=== PATIENT | female | born 1965 | race Caucasian/White ===

== ENCOUNTER → 2019-03-26 | Outpatient (CLI) | payer OTHER ==
[~2019-03-26] MED LIST: ALBIPROI; ALBU90OI INH; AMOX500 PO; AMOX875 PO; ATEN100; ATEN100 PO; ATIVAN; AZIT250 PO; CEPH500 PO; CLAR500 PO; CLIN150 PO; DIOVAN; FURO40 PO; GABA400 PO; GUAPSEER PO; HCTZ; HYDACE10B PO; HYDACE5 PO; HYDGUAL120 PO; IBUP200; IBUP800; IBUP800 PO; LEVO750 PO; LEVSOD125 PO; LEVSOD75 PO; LISI20 PO; LORA1 PO; LORA2 PO; NAPR550 PO; PARO20 PO; PENVK500 PO; PRED20 PO; PROCODE120 PO; PROM25 PO; SUBOXONE 12 MG1 EACH SL
== END | disposition home or self-care (01) ==
LOC: LAB 09:31 → LAB SHORT 09:31
DX: R30.0 Dysuria (principal)
CPT/HCPCS: 87077; 87086; 87186

== ENCOUNTER → 2019-06-10 | Outpatient (CLI) | payer OTHER ==
[2019-06-12 15:09] LABS: HPV 16 Negative (Negative); HPV 18 Negative (Negative); HPV OTHER HR TYPES Negative (Negative)
== END ==
LOC: LAB 14:50 → LAB SHORT 14:50
PROVIDERS: Student in an Organized Health Care Education/Training Program
DX: Z12.4 Encounter for screening for malignant neoplasm of cervix (principal)
CPT/HCPCS: 87624; G0145

== ENCOUNTER → 2020-05-19 | Outpatient (CLI) | payer OTHER | END | disposition home or self-care (01) | LOC: LAB SHORT 18:54 → PLD 18:54 | DX: N30.00 Acute cystitis without hematuria (principal) | CPT/HCPCS: 87077; 87086; 87186 ==

== ENCOUNTER 2021-01-12 06:01 | Emergency (ER) | payer OTHER ==
[~2021-01-12] VITALS: Ht 172.7 cm; Wt 76.7 kg
== END 2021-01-12 07:58 | disposition home or self-care (01) ==
LOC: ER 06:01
DX: S52.611A Displaced fracture of right ulna styloid process, initial encounter for closed fracture (principal); S52.571A Other intraarticular fracture of lower end of right radius, initial encounter for closed fracture; S61.452A Open bite of left hand, initial encounter; S61.451A Open bite of right hand, initial encounter; S51.852A Open bite of left forearm, initial encounter; S51.851A Open bite of right forearm, initial encounter; I10 Essential (primary) hypertension; J45.909 Unspecified asthma, uncomplicated; F17.210 Nicotine dependence, cigarettes, uncomplicated; Z88.5 Allergy status to narcotic agent; Z88.8 Allergy status to other drugs, medicaments and biological substances; Z79.899 Other long term (current) drug therapy; W19.XXXA Unspecified fall, initial encounter; W54.0XXA Bitten by dog, initial encounter
CPT/HCPCS: 73060; 73110; 99284; A9270

== ENCOUNTER 2021-01-15 10:36 | Emergency (ER) | payer OTHER ==
[~2021-01-15] VITALS: Ht 172.7 cm; Wt 76.2 kg
[2021-01-15] MEDS ORDERED: Norco 5-325 Ta1 EACH PO (11:24)
== END 2021-01-15 11:33 | disposition home or self-care (01) ==
LOC: ER 10:36
DX: S52.521D Torus fracture of lower end of right radius, subsequent encounter for fracture with routine healing (principal); S52.611D Displaced fracture of right ulna styloid process, subsequent encounter for closed fracture with routine healing; Z76.0 Encounter for issue of repeat prescription; I10 Essential (primary) hypertension; J45.909 Unspecified asthma, uncomplicated; F17.210 Nicotine dependence, cigarettes, uncomplicated; Z88.5 Allergy status to narcotic agent; Z88.8 Allergy status to other drugs, medicaments and biological substances; Z79.899 Other long term (current) drug therapy
CPT/HCPCS: 99281

== ENCOUNTER → 2021-02-23 | Outpatient (CLI) | payer OTHER ==
[~2021-02-23] MED LIST changes: +Norco 5-325 Ta1 EACH PO
[2021-03-01 14:10] LABS: CHLAMYDIA BY NAA Negative (Negative); GONOCOCCUS BY NAA Negative (Negative); HPV 16 Negative (Negative); HPV 18 Negative (Negative); HPV OTHER HR TYPES Negative (Negative); TRICH VAG BY NAA Negative (Negative)
== END ==
LOC: LAB SHORT 18:14
PROVIDERS: Nurse Practitioner Family
DX: Z01.419 Encounter for gynecological examination (general) (routine) without abnormal findings (principal)
CPT/HCPCS: 87491; 87591; 87624; 87661; G0123

== ENCOUNTER 2021-03-22 08:51 | Emergency (ER) | payer OTHER ==
[~2021-03-22] VITALS: Ht 167.6 cm; Wt 74.4 kg
[2021-03-22 09:52] LABS: Source, Urine Catheter
[2021-03-22 09:56] LABS: Appearance, Urine Hazy (Clear); Bilirubin, Urine Neg (Neg); Blood, Urine 1+ (Neg); Color, Urine Yellow (P-Yellow); Glucose Qualitative, Urine Neg (Neg); Ketones, Urine Neg (Neg); Leukocyte Esterase, Urine 3+ (Neg); Nitrite, Urine Pos (Neg); Protein, Urine Neg (Neg); Urobilinogen, Urine NORM (Normal)
[2021-03-22 10:16] LABS: Bacteria Many /hpf; Squamous Epithelial Cells Many /hpf (Few); Transitional Epithelial Cells Rare /hpf (0-Rare); White Blood Cells, Urine 50-100 /hpf (0-5)
[2021-03-22 10:17] LABS: BASOPHILS ABSOLUTE AUTO 0.03 K/mm3 (0.00-0.23); BASOPHILS PERCENT AUTO 1 % (0-2); EOSINOPHILS ABSOLUTE AUTO 0.19 K/mm3 (0.00-0.68); EOSINOPHILS PERCENT AUTO 3 % (0-6); Hematocrit 39.3 % (33.0-51.0); Hemoglobin 12.3 g/dL (11.5-16.0); IMMATURE GRAN ABSOLUTE AUTO 0.02 K/mm3 (0.00-0.10); IMMATURE GRAN PERCENT AUTO 0 % (0-1); LYMPHOCYTES ABSOLUTE AUTO 1.26 K/mm3 (0.84-5.20); LYMPHOCYTES PERCENT AUTO 22 % (21-46); MONOCYTES ABSOLUTE AUTO 0.48 K/mm3 (0.16-1.47); MONOCYTES PERCENT AUTO 9 % (4-13); Mean Corpuscular HGB 28.6 pg (26.0-34.0); Mean Corpuscular HGB Conc 31.3 g/dL (31.5-36.5); Mean Corpuscular Volume 91 fL (80-100); Mean Platelet Volume 10.6 fL (9.1-12.4); NEUTROPHILS PERCENT AUTO 65 % (41-73); Platelet Count 209 K/mm3 (150-400); RDW Coefficient Variation 13.7 % (11.7-14.2); RDW Standard Deviation 46.5 fL (35.1-46.3); White Blood Cell Count 5.68 K/mm3 (4.00-11.30)
[2021-03-22 10:33] LABS: International Normalized Ratio 0.92; Prothrombin Time Results 9.7 Sec (9.7-11.5)
[2021-03-22 10:50] LABS: Alanine Aminotransfer (ALT/SGP 20 U/L (12-78); Albumin/Globulin Ratio 0.7 (0.8-1.8); Alk Phos 154 U/L (50-136); Anion Gap 6 mmol/L (6-16); Aspartate Aminotrans (AST/SGOT 19 U/L (12-37); Bilirubin, Total 0.4 mg/dL (0.1-1.0); Blood Urea Nitrogen 24 mg/dL (8-24); Bun/Creatinine Ratio 27.2 (12.0-20.0); CO2, Blood 34 mmol/L (21-32); Calcium, Blood 8.2 mg/dL (8.5-10.1); Chloride, Blood 100 mmol/L (98-108); Creatinine, Blood 0.88 mg/dL (0.40-1.00); Globulin, Blood 4.4 g/dL (2.2-4.0); Glomerular Filtration Rate >60 (60-); Glucose, Blood 100 mg/dL (70-99); Potassium, Blood 4.3 mmol/L (3.5-5.5); Sodium, Blood 140 mmol/L (136-145); Total Protein, Blood 7.4 g/dL (6.4-8.2); Troponin I <0.015 ng/mL (0.000-0.040)
[2021-03-22 10:55] LABS: U Amphetamine Screen Not Detected; U Barbituate Screen Not Detected; U Benzodiazapine Screen Not Detected; U Buprenorphine Screen DETECTED; U Cannabinoids Screen Not Detected; U Cocaine Screen Not Detected; U Methadone Screen Not Detected; U Methamphetamine Screen Not Detected; U Opiates Screen Not Detected; U Oxycodone Screen Not Detected; U Phencyclidine Screen Not Detected; U Propoxyphene Screen Not Detected
[2021-03-22] MEDS ORDERED: CEFD300 PO (12:49)
== END 2021-03-22 13:32 | disposition home or self-care (01) ==
LOC: ER 08:51
PROVIDERS: Physician Assistant
DX: S70.01XA Contusion of right hip, initial encounter (principal); N39.0 Urinary tract infection, site not specified; Z88.5 Allergy status to narcotic agent; Z88.8 Allergy status to other drugs, medicaments and biological substances; Z79.899 Other long term (current) drug therapy; I10 Essential (primary) hypertension; J45.909 Unspecified asthma, uncomplicated; F17.210 Nicotine dependence, cigarettes, uncomplicated; W19.XXXA Unspecified fall, initial encounter
CPT/HCPCS: 36415; 70450; 71046; 72125; 73502; 73564; 80053; 81001; 83690; 84484; 85025; 85610; 87077; 87086; 87186; 96365; 99284-25; J0696; J7030

== ENCOUNTER 2022-02-26 17:35 | Inpatient (IN) | payer OTHER ==
[~2022-02-26] VITALS: Ht 172.7 cm; Wt 68.8 kg
[~2022-02-26 17:35] MED LIST changes: +CEFD300 PO; -LISI20 PO; +Prinivil10 MG PO; +Venlafaxine HC150 MG PO
[2022-02-26 18:12] LABS: Hematocrit 43.3 % (33.0-51.0); Hemoglobin 14.4 g/dL (11.5-16.0); Mean Corpuscular HGB 27.9 pg (26.0-34.0); Mean Corpuscular HGB Conc 33.3 g/dL (31.5-36.5); Mean Corpuscular Volume 84 fL (80-100); Mean Platelet Volume 10.5 fL (9.1-12.4); Platelet Count 121 K/mm3 (150-400); RDW Coefficient Variation 13.3 % (11.7-14.2); RDW Standard Deviation 41.3 fL (35.1-46.3); Red Blood Cell Count 5.16 M/mm3 (3.80-5.20); White Blood Cell Count 13.72 K/mm3 (4.00-11.30)
[2022-02-26 18:20] LABS: Source, Urine Clean Catch
[2022-02-26 18:24] LABS: Alanine Aminotransfer (ALT/SGP 45 U/L (12-78); Albumin, Blood 2.5 g/dL (3.4-5.0); Albumin/Globulin Ratio 0.5 (0.8-1.8); Alk Phos 173 U/L (50-136); Anion Gap 6 mmol/L (6-16); Aspartate Aminotrans (AST/SGOT 77 U/L (12-37); Bilirubin, Total 0.7 mg/dL (0.1-1.0); Blood Urea Nitrogen 25 mg/dL (8-24); Bun/Creatinine Ratio 27.9 (12.0-20.0); CO2, Blood 29 mmol/L (21-32); Calcium, Blood 9.7 mg/dL (8.5-10.1); Chloride, Blood 104 mmol/L (98-108); Globulin, Blood 5.3 g/dL (2.2-4.0); Glomerular Filtration Rate 74 (60-); Glucose, Blood 121 mg/dL (70-99); Potassium, Blood 3.1 mmol/L (3.5-5.5); Sodium, Blood 139 mmol/L (136-145); Total Protein, Blood 7.8 g/dL (6.4-8.2)
[2022-02-26 18:30] LABS: Appearance, Urine Hazy (Clear); Bilirubin, Urine Neg (Neg); Blood, Urine 5+ (Neg); Color, Urine Amber (P-Yellow); Glucose Qualitative, Urine Neg (Neg); Ketones, Urine Neg (Neg); Leukocyte Esterase, Urine 2+ (Neg); Nitrite, Urine Pos (Neg); Protein, Urine 3+ (Neg); Urobilinogen, Urine 1+ (Normal)
[2022-02-26 18:30] LABS: Influenza A, PCR NEGATIVE (NEGATIVE); Influenza B, PCR NEGATIVE (NEGATIVE); Resp Syncytial Virus, PCR NEGATIVE (NEGATIVE); SARS-Cov-2 (COVID-19) PCR, MMC NEGATIVE (NEGATIVE)
[2022-02-26 18:43] LABS: U Amphetamine Screen Not Detected; U Barbituate Screen Not Detected; U Benzodiazapine Screen Not Detected; U Buprenorphine Screen DETECTED; U Cannabinoids Screen Not Detected; U Cocaine Screen Not Detected; U Methadone Screen Not Detected; U Methamphetamine Screen Not Detected; U Opiates Screen Not Detected; U Oxycodone Screen Not Detected; U Phencyclidine Screen Not Detected; U Propoxyphene Screen Not Detected
[2022-02-26 18:46] LABS: EOSINOPHILS PERCENT MAN 0 % (0-6); TOTAL CELLS COUNTED 100
[2022-02-26 18:48] LABS: Bacteria Many /hpf; Hyaline Casts 0-2 /lpf (0-2); Mucus Light (0-Heavy); Red Blood Cells, Urine 25-50 /hpf (0-2); Squamous Epithelial Cells Mod /hpf (Few); Transitional Epithelial Cells Rare /hpf (0-Rare); White Blood Cells, Urine TNTC /hpf (0-5)
[2022-02-26 18:51] LABS: BAND PERCENT MAN 16 % (0-8); BASOPHILS PERCENT MAN 0 % (0-2); LYMPHOCYTES ABSOLUTE MAN 0.54 K/mm3 (0.84-5.20); LYMPHOCYTES PERCENT MAN 4 % (21-46); METAMYELOCYTE ABSOLUTE MAN 0.41 K/mm3 (0.00-0.00); METAMYELOCYTE PERCENT MAN 3 % (0-0); MONOCYTES ABSOLUTE MAN 0.27 K/mm3 (0.16-1.47); MONOCYTES PERCENT MAN 2 % (4-13); NEUTROPHILS ABSOLUTE MAN 12.48 K/mm3 (1.96-9.15); SEG NEUTROPHILS PERCENT MAN 75 % (41-73)
--- NOTE | 2022-02-27 04:50 | NUR ---
SUMMARY: PATIENT ADMITTED OVERNIGHT FOR UROSEPSIS. PATIENT VERY LETHERGIC UPON ARRIVAL TO UNIT. PATIENT RESPONDS TO VERBAL STIMULI. SHE ANSWERS TO NAME AND CAN STATE SHE IS AT [facility], DOES NOT RESPOND TO ANY OTHER QUESTIONS. PATIENT HAD A FEVER THROUGHOUT NIGHT, NPO, NOT RESPONSIVE ENOUGH TO TAKE ORAL MEDS SO REQUESTED AND ADMINISTERED RECTAL TYLENOL TWICE. PLACED ICE PACKS ON PATIENT CORE SHE BECAME VERY DIAPHORETIC WHEN FEVERS SPIKED. PATIENT INCONTINENT OF URINE AND NOT ABLE TO AMBULATE OUT OF BED. PLACED PATIENT ON PURE WIC AFTER A FEW EPISODES OF INCONTINENT URINE. PATIENT ON TELE RUNNING TACHY LOW 100S. SCABS AND BRUISES NOTED ALL OVER PATIENT ARMS AND LEGS UPON ARRIVAL. PATIENT RESTED IN BED COMFORTABLY MOST OF NIGHT. BED ALARM ON, CALL LIGHT IN REACH. BREIF CHANGED NEEDED. PATIENT OCCASIONALLY WAKES UP AND ATTEMPTS TO GET OUT OF BED. PATIENT EDUCATED TO CALL BEFORE GETTING UP AND REDIRECTED INTO BED.
[2022-02-27 05:53] LABS: Hematocrit 39.5 % (33.0-51.0); Mean Corpuscular HGB 27.7 pg (26.0-34.0); Mean Corpuscular HGB Conc 32.9 g/dL (31.5-36.5); Mean Corpuscular Volume 84 fL (80-100); Mean Platelet Volume 10.7 fL (9.1-12.4); Platelet Count 99 K/mm3 (150-400); RDW Coefficient Variation 13.4 % (11.7-14.2); RDW Standard Deviation 41.5 fL (35.1-46.3); Red Blood Cell Count 4.69 M/mm3 (3.80-5.20); White Blood Cell Count 13.94 K/mm3 (4.00-11.30)
[2022-02-27 06:15] LABS: Bun/Creatinine Ratio 33.9 (12.0-20.0); Calcium, Blood 9.2 mg/dL (8.5-10.1); Creatinine, Blood 0.86 mg/dL (0.40-1.00); Potassium, Blood 2.6 mmol/L (3.5-5.5)
--- NOTE | 2022-02-27 06:26 | NUR ---
PATIENT HAD POSITIVE BLOOD CULTURES GRAM NEG BACILLI. NOTIFIED MD TYLER. 621.
[2022-02-27 07:11] LABS: BAND PERCENT MAN 7 % (0-8); BASOPHILS PERCENT MAN 0 % (0-2); EOSINOPHILS PERCENT MAN 0 % (0-6); LYMPHOCYTES ABSOLUTE MAN 0.55 K/mm3 (0.84-5.20); LYMPHOCYTES PERCENT MAN 4 % (21-46); MONOCYTES ABSOLUTE MAN 0.55 K/mm3 (0.16-1.47); MONOCYTES PERCENT MAN 4 % (4-13); NEUTROPHILS ABSOLUTE MAN 12.82 K/mm3 (1.96-9.15); SEG NEUTROPHILS PERCENT MAN 85 % (41-73); TOTAL CELLS COUNTED 100
[2022-02-27] MEDS ORDERED: BUPRENORPHINE HC8 MG SL (13:18)
[2022-02-27] MEDS ORDERED: VENLAFAXINE H37.5 M1 PO (13:19)
[2022-02-27] MEDS ORDERED: EUTHYROX25 MC1 PO (13:19)
[2022-02-27] MEDS ORDERED: NEURONTIN300 MG PO (13:22)
[2022-02-27] MEDS ORDERED: TORSE20 PO (13:30)
--- NOTE | 2022-02-27 16:39 | NUR ---
SHIFT SUMMARY; PATIENT VERY SOMNOLENT DURING DAY ONLY WAKING WHEN SPOUSE AND DAUGHTER COME TO ROOM. PATIENT INSISTING ON SUBOXONE PO HOWEVER CANNOT REMAIN AWAKE LONG ENOUGH TO ASSIST IN ANSWERING QUESTIONS FOR AN ASSESSMENT. PATIENT RECEIVED 60MEQ OF KCL IV WITH 25NS CONCURRENT FOR BURNING. SHE TOLERATED WELL. AT THIS TIME SHE IS RECEIVING D5 1/2 NS WITH 40MEQ KCL. AT 75ML/HR X 1 BAG. HER BLOOD PRESSURE IS ELEVATED AT 163 SYSTOLIC. HER TEMP IS 99.0 ORALLY. SHE REMAINS SINUS TACK AT 104 SATS 95% ON ROOM AIR.
[2022-02-27 17:23] LABS: Albumin, Blood 1.9 g/dL (3.4-5.0); Anion Gap 3 mmol/L (6-16); Blood Urea Nitrogen 25 mg/dL (8-24); Bun/Creatinine Ratio 29.9 (12.0-20.0); CO2, Blood 30 mmol/L (21-32); Calcium, Blood 8.9 mg/dL (8.5-10.1); Chloride, Blood 114 mmol/L (98-108); Creatinine, Blood 0.84 mg/dL (0.40-1.00); Glomerular Filtration Rate 81 (60-); Glucose, Blood 124 mg/dL (70-99); Magnesium, Blood 2.8 mg/dL (1.6-2.4); Phosphorus, Blood 2.5 mg/dL (2.5-4.9); Potassium, Blood 3.3 mmol/L (3.5-5.5); Sodium, Blood 147 mmol/L (136-145)
[2022-02-28 05:00] LABS: BASOPHILS ABSOLUTE AUTO 0.04 K/mm3 (0.00-0.23); BASOPHILS PERCENT AUTO 0 % (0-2); EOSINOPHILS ABSOLUTE AUTO 0.04 K/mm3 (0.00-0.68); EOSINOPHILS PERCENT AUTO 0 % (0-6); Hematocrit 38.2 % (33.0-51.0); Hemoglobin 12.7 g/dL (11.5-16.0); IMMATURE GRAN ABSOLUTE AUTO 0.06 K/mm3 (0.00-0.10); IMMATURE GRAN PERCENT AUTO 1 % (0-1); LYMPHOCYTES ABSOLUTE AUTO 0.77 K/mm3 (0.84-5.20); LYMPHOCYTES PERCENT AUTO 8 % (21-46); MONOCYTES ABSOLUTE AUTO 0.94 K/mm3 (0.16-1.47); MONOCYTES PERCENT AUTO 9 % (4-13); Mean Corpuscular HGB 27.5 pg (26.0-34.0); Mean Corpuscular HGB Conc 33.2 g/dL (31.5-36.5); Mean Corpuscular Volume 83 fL (80-100); NEUTROPHILS ABSOLUTE AUTO 8.25 K/mm3 (1.96-9.15); NEUTROPHILS PERCENT AUTO 82 % (41-73); Platelet Count 85 K/mm3 (150-400); RDW Coefficient Variation 13.6 % (11.7-14.2); RDW Standard Deviation 41.2 fL (35.1-46.3); Red Blood Cell Count 4.61 M/mm3 (3.80-5.20)
--- NOTE | 2022-02-28 05:08 | NUR ---
SHIFT SUMMARY - NO ACUTE CHANGES THROUGHOUT THIS SHIFT. PT REPORTS FEELING "MUCH BETTER" THIS AM. PT HAS BEEN SLEEPING THROUGHOUT MOST OF THE NIGHT, BUT AWAKENS EASILY TO VERBAL COMMUNICATION. PT'S HAS BEEN REQUESTING PO FLUIDS THROUGHOUT THE NIGHT, KEEPS REPORTING "SHE IS THIRSTY." SEE I/O'S. ANETAWICK WAS OFF/ON FUNCTIONAL TONIGHT - REPLACED THIS AM. PT HAS BEEN INCONTINENT OF URINE - ATTENDS IN PLACE. IV FLUIDS INFUSED - SL'D. FLUIDS AT BEDSIDE. CALL LIGHT WITHIN REACH. BED IN LOW POSITION. WILL CONTINUE TO MONITOR UNTIL AM SHIFT CHANGE.
[2022-02-28 05:16] LABS: Albumin, Blood 1.7 g/dL (3.4-5.0); Anion Gap 6 mmol/L (6-16); Blood Urea Nitrogen 25 mg/dL (8-24); Bun/Creatinine Ratio 30.7 (12.0-20.0); CO2, Blood 27 mmol/L (21-32); Calcium, Blood 8.7 mg/dL (8.5-10.1); Chloride, Blood 108 mmol/L (98-108); Creatinine, Blood 0.81 mg/dL (0.40-1.00); Glomerular Filtration Rate 84 (60-); Glucose, Blood 127 mg/dL (70-99); Magnesium, Blood 2.4 mg/dL (1.6-2.4); Phosphorus, Blood 2.1 mg/dL (2.5-4.9); Potassium, Blood 3.3 mmol/L (3.5-5.5); Sodium, Blood 141 mmol/L (136-145)
[2022-02-28] MEDS ORDERED: VENL37.5 PO (09:05)
--- NOTE | 2022-02-28 18:19 | NUR ---
SUMMARY- PT A/O X4. STATES SHE FEELS LIKE HER SENSORIUM IS CLEAR NOW. VERBAL AND PLEASANT, AWAKE AND HAPPY. TOLERATING FOOD AND FLUIDS. GOT UP BEFORE LUNCH AND BATHED, TOOK PUREWICK OFF, SKIN INTACT. LUNGS ARE CLEAR. BROUGHT CPAP FROM HOME FOR PT USE. ON CONT PULSE OX SATTING 94-97%. USES OXYGEN WITH IT AT NIGHT. PREFERS TO SIT UP IN CHAIR. OBTAINED A RECLINER SO PT COULD ELEVATE LEGS. LE ARE DARKENED WITH PVD, NO NOTIBLE EDEMA PRESENT ALTHOUGH AT HOME TAKES TORSEMIDE, NOT TAKING HERE IN HOSP. PT HAD BEEN VERY THIRSTY AND URINE HAD BEEN CONCENTRATED, IS NOW MED YELLOW AND LESS CONCEN. WILL REPORT TO IVAN PAZ.
--- NOTE | 2022-03-01 04:40 | NUR ---
SHIFT SUMMARY; NO ACUTE MEDICAL CHANGES OVERNIGHT, THE PT REMAINED ON CONTINOUS BIOX THROUGHOUT THE NIGHT AND MAINTAINED SATS >92%. THE PT REF TO WEAR CPAP STATING THE MACHINE SOUNDS WEIRD NOT LIKE HER HOME MACHINE. PT USED CALL LIGHT APPROPRIATLEY THROUGHOUT THE SHIFT. THE PT WAS MEDICATED WITH TYLENOL LAST NIGHT FOR A BORELINE FEVER OF 100.1 DEGREES WELL A HEADACHE. CURRENTLY THE PT IS RESTING IN BED WITH THE BED IN THE LOWEST POSITION AND THE CALL LIGHT AT BEDSIDE. NO CHANGES IN MENTATION NOTED THROUGHOUT THE NIGHT.
[2022-03-01 09:56] LABS: Albumin, Blood 1.8 g/dL (3.4-5.0); Anion Gap 3 mmol/L (6-16); Blood Urea Nitrogen 28 mg/dL (8-24); Bun/Creatinine Ratio 32.4 (12.0-20.0); CO2, Blood 31 mmol/L (21-32); Calcium, Blood 8.8 mg/dL (8.5-10.1); Chloride, Blood 106 mmol/L (98-108); Creatinine, Blood 0.86 mg/dL (0.40-1.00); Glomerular Filtration Rate 78 (60-); Glucose, Blood 115 mg/dL (70-99); Potassium, Blood 4.2 mmol/L (3.5-5.5); Sodium, Blood 140 mmol/L (136-145)
[2022-03-01] MEDS ORDERED: ACET325 PO (10:13)
[2022-03-01] MEDS ORDERED: VISBIOME 112.51 EACH PO (10:14)
[2022-03-01] MEDS ORDERED: CEFD300 PO (10:14)
[2022-03-01] MEDS ORDERED: ONDA4ODT SL (10:14)
--- NOTE | 2022-03-01 13:46 | NUR ---
PT DISCHARGED 1105 WITH DC INSTRUCTION, PRESENT FOR INSTRUCTION AND ALSO EDUCATION TO PREVENT UTI. WHEELCHAIR OUT TO CAR. BELONGINGS SENT HOME INCLUDING PT'S CPAP
== END 2022-03-01 11:06 | disposition home or self-care (01) | DRG 871 ==
LOC: ER 17:35 → MEDS 17:36
PROVIDERS: Emergency Medicine; Family Medicine; Internal Medicine; Physician Assistant; ADMIT Internal Medicine
DX: A41.51 Sepsis due to Escherichia coli [E. coli] (principal); G92.8 Other toxic encephalopathy; G93.41 Metabolic encephalopathy; F11.20 Opioid dependence, uncomplicated; E87.20 Acidosis, unspecified; N39.0 Urinary tract infection, site not specified; R65.20 Severe sepsis without septic shock; I10 Essential (primary) hypertension; E03.9 Hypothyroidism, unspecified; E87.6 Hypokalemia; Z20.822 Contact with and (suspected) exposure to COVID-19; F41.9 Anxiety disorder, unspecified; J45.909 Unspecified asthma, uncomplicated; N80.9 Endometriosis, unspecified; D69.6 Thrombocytopenia, unspecified; G47.33 Obstructive sleep apnea (adult) (pediatric); G47.9 Sleep disorder, unspecified; L65.9 Nonscarring hair loss, unspecified; F10.11 Alcohol abuse, in remission; F17.210 Nicotine dependence, cigarettes, uncomplicated; Z98.890 Other specified postprocedural states; Z79.899 Other long term (current) drug therapy; Z79.01 Long term (current) use of anticoagulants; Z79.811 Long term (current) use of aromatase inhibitors; Z99.81 Dependence on supplemental oxygen
CPT/HCPCS: 0241U; 36415; 70450; 71045; 73630; 80048; 80053; 80069; 81001; 83605; 83690; 83735; 85025; 87040; 87077; 87086; 87186; 94762; 96365; 99285-25; A9270; J0696; J1650; J3480; J7030; J7050; P9612

== ENCOUNTER → 2022-03-18 | Outpatient (CLI) | payer OTHER ==
[~2022-03-18] MED LIST changes: +ACET325 PO; +BUPRENORPHINE HC8 MG SL; +EUTHYROX25 MC1 PO; +NEURONTIN300 MG PO; +ONDA4ODT SL; +TORSE20 PO; +VENL37.5 PO; +VENLAFAXINE H37.5 M1 PO; +VISBIOME 112.51 EACH PO
== END | disposition home or self-care (01) ==
LOC: LAB 10:04 → LAB SHORT 10:04
DX: R82.90 Unspecified abnormal findings in urine (principal)
CPT/HCPCS: 87086

== ENCOUNTER → 2022-06-06 | Outpatient (CLI) | payer OTHER | END | disposition home or self-care (01) | LOC: LAB 09:00 → LAB SHORT 09:00 | DX: R30.0 Dysuria (principal) | CPT/HCPCS: 87077; 87086; 87186 ==

== ENCOUNTER 2022-06-26 00:55 | Day surgery (SDC) | payer OTHER | END 2022-06-26 22:46 | disposition home or self-care (01) | LOC: WOUND 00:55 | DX: I87.313 Chronic venous hypertension (idiopathic) with ulcer of bilateral lower extremity (principal); L97.822 Non-pressure chronic ulcer of other part of left lower leg with fat layer exposed; L97.812 Non-pressure chronic ulcer of other part of right lower leg with fat layer exposed; I87.2 Venous insufficiency (chronic) (peripheral); I73.9 Peripheral vascular disease, unspecified | CPT/HCPCS: 99406; G0463 ==

== ENCOUNTER 2022-06-28 02:18 | Day surgery (SDC) | payer OTHER | END 2022-06-28 22:43 | disposition home or self-care (01) | LOC: WOUND 02:18 | DX: I87.313 Chronic venous hypertension (idiopathic) with ulcer of bilateral lower extremity (principal); L97.822 Non-pressure chronic ulcer of other part of left lower leg with fat layer exposed; L97.812 Non-pressure chronic ulcer of other part of right lower leg with fat layer exposed; I87.2 Venous insufficiency (chronic) (peripheral); I73.9 Peripheral vascular disease, unspecified; R77.0 Abnormality of albumin ==

== ENCOUNTER 2022-07-03 01:59 | Day surgery (SDC) | payer OTHER | END 2022-07-03 23:00 | disposition home or self-care (01) | LOC: WOUND 01:59 | DX: I87.313 Chronic venous hypertension (idiopathic) with ulcer of bilateral lower extremity (principal); L97.822 Non-pressure chronic ulcer of other part of left lower leg with fat layer exposed; L97.812 Non-pressure chronic ulcer of other part of right lower leg with fat layer exposed; R60.0 Localized edema; I87.2 Venous insufficiency (chronic) (peripheral); I73.9 Peripheral vascular disease, unspecified; R77.0 Abnormality of albumin; Z72.0 Tobacco use | CPT/HCPCS: 99406; A9270 ==

== ENCOUNTER 2022-07-09 00:19 | Day surgery (SDC) | payer OTHER | END 2022-07-09 22:43 | disposition home or self-care (01) | LOC: WOUND 00:19 | DX: I87.313 Chronic venous hypertension (idiopathic) with ulcer of bilateral lower extremity (principal); L97.812 Non-pressure chronic ulcer of other part of right lower leg with fat layer exposed; L97.822 Non-pressure chronic ulcer of other part of left lower leg with fat layer exposed; R60.0 Localized edema; I87.2 Venous insufficiency (chronic) (peripheral); I73.9 Peripheral vascular disease, unspecified; Z72.0 Tobacco use; R77.0 Abnormality of albumin ==

== ENCOUNTER → 2022-07-12 | Outpatient (CLI) | payer OTHER ==
[2022-07-12 16:40] LABS: Source, Urine Clean Catch
[2022-07-12 17:58] LABS: Appearance, Urine Clear (Clear); Bilirubin, Urine Neg (Neg); Blood, Urine Neg (Neg); Color, Urine Yellow (P-Yellow); Glucose Qualitative, Urine Neg (Neg); Ketones, Urine Neg (Neg); Leukocyte Esterase, Urine Neg (Neg); Nitrite, Urine Neg (Neg); Protein, Urine Neg (Neg); Urobilinogen, Urine NORM (Normal)
== END | disposition home or self-care (01) ==
LOC: LAB 12:45 → LAB SHORT 12:45
PROVIDERS: Nurse Practitioner Family
DX: R30.0 Dysuria (principal)
CPT/HCPCS: 81003

== ENCOUNTER 2022-07-24 02:48 | Day surgery (SDC) | payer OTHER | END 2022-07-24 22:59 | disposition home or self-care (01) | LOC: WOUND 02:48 | DX: Z48.00 Encounter for change or removal of nonsurgical wound dressing (principal); Z72.0 Tobacco use ==

== ENCOUNTER → 2022-08-28 | Outpatient (CLI) | payer OTHER ==
[2022-08-28 14:58] LABS: Source, Urine Clean Catch
[2022-08-28 17:35] LABS: Appearance, Urine Clear (Clear); Bilirubin, Urine Neg (Neg); Blood, Urine Neg (Neg); Color, Urine Yellow (P-Yellow); Glucose Qualitative, Urine Neg (Neg); Ketones, Urine Neg (Neg); Leukocyte Esterase, Urine Neg (Neg); Nitrite, Urine Neg (Neg); Protein, Urine Neg (Neg); Urobilinogen, Urine NORM (Normal)
== END | disposition home or self-care (01) ==
LOC: LAB SHORT 14:57 → LAB 14:57
PROVIDERS: Nurse Practitioner Family
DX: N32.89 Other specified disorders of bladder (principal)
CPT/HCPCS: 81003

== ENCOUNTER → 2022-10-30 | Outpatient (CLI) | payer OTHER ==
[~2022-10-30] MED LIST changes: +Percocet 5-3251 EACH PO
[2022-10-30 17:32] LABS: Source, Urine Voided
[2022-10-30 19:18] LABS: Appearance, Urine Clear (Clear); Bilirubin, Urine Neg (Neg); Blood, Urine Neg (Neg); Glucose Qualitative, Urine Neg (Neg); Ketones, Urine Neg (Neg); Leukocyte Esterase, Urine Neg (Neg); Nitrite, Urine Neg (Neg); Protein, Urine Neg (Neg); Urobilinogen, Urine NORM (Normal)
[2022-10-30 19:23] LABS: Color, Urine Pale Yellow (P-Yellow)
== END | disposition home or self-care (01) ==
LOC: LAB SHORT 09:15 → LAB 09:15
PROVIDERS: Nurse Practitioner Family
DX: N39.0 Urinary tract infection, site not specified (principal)
CPT/HCPCS: 81003

== ENCOUNTER → 2023-01-21 | Outpatient (CLI) | payer OTHER | LOC: LAB SHORT 17:36 → LAB 17:36 | DX: R35.0 Frequency of micturition (principal) | CPT/HCPCS: 87086 ==

== ENCOUNTER → 2023-04-29 | Outpatient (CLI) | payer OTHER ==
[2023-04-29 14:37] LABS: Source, Urine Clean Catch
[2023-04-29 18:30] LABS: Appearance, Urine Clear (Clear); Bilirubin, Urine Neg (Neg); Blood, Urine 1+ (Neg); Glucose Qualitative, Urine Neg (Neg); Ketones, Urine Neg (Neg); Leukocyte Esterase, Urine Neg (Neg); Nitrite, Urine Neg (Neg); Protein, Urine Neg (Neg); Urobilinogen, Urine NORM (Normal)
[2023-04-29 18:39] LABS: Color, Urine Pale Yellow (P-Yellow)
[2023-04-29 18:40] LABS: Bacteria Rare /hpf; Red Blood Cells, Urine 0-2 /hpf (0-2); Squamous Epithelial Cells Few /hpf (Few); White Blood Cells, Urine 0-2 /hpf (0-5)
== END ==
LOC: LAB SHORT 14:35 → LAB 14:35
PROVIDERS: Family Medicine
DX: R39.15 Urgency of urination (principal)
CPT/HCPCS: 81001

== ENCOUNTER 2023-05-06 03:34 | Day surgery (SDC) | payer OTHER | END 2023-05-06 22:59 | disposition home or self-care (01) | LOC: WOUND 03:34 | DX: I83.018 Varicose veins of right lower extremity with ulcer other part of lower leg (principal); I83.028 Varicose veins of left lower extremity with ulcer other part of lower leg; E11.622 Type 2 diabetes mellitus with other skin ulcer; L97.813 Non-pressure chronic ulcer of other part of right lower leg with necrosis of muscle; L97.823 Non-pressure chronic ulcer of other part of left lower leg with necrosis of muscle; F11.11 Opioid abuse, in remission; E03.9 Hypothyroidism, unspecified; I10 Essential (primary) hypertension; Z88.5 Allergy status to narcotic agent; Z88.8 Allergy status to other drugs, medicaments and biological substances | CPT/HCPCS: G0463 ==

== ENCOUNTER 2023-05-10 15:34 | Emergency (ER) | payer OTHER ==
[~2023-05-10] VITALS: Ht 170.2 cm; Wt 73.9 kg
[2023-05-10 15:41] VITALS: BP 146/102
[2023-05-10 16:31] LABS: BASOPHILS ABSOLUTE AUTO 0.02 K/mm3 (0.00-0.23); BASOPHILS PERCENT AUTO 0 % (0-2); EOSINOPHILS PERCENT AUTO 0 % (0-6); Hematocrit 44.1 % (33.0-51.0); Hemoglobin 14.1 g/dL (11.5-16.0); IMMATURE GRAN ABSOLUTE AUTO 0.01 K/mm3 (0.00-0.10); IMMATURE GRAN PERCENT AUTO 0 % (0-1); LYMPHOCYTES ABSOLUTE AUTO 1.18 K/mm3 (0.84-5.20); LYMPHOCYTES PERCENT AUTO 18 % (21-46); MONOCYTES ABSOLUTE AUTO 0.47 K/mm3 (0.16-1.47); MONOCYTES PERCENT AUTO 7 % (4-13); Mean Corpuscular HGB 28.1 pg (26.0-34.0); Mean Corpuscular Volume 88 fL (80-100); Mean Platelet Volume 9.4 fL (9.1-12.4); NEUTROPHILS ABSOLUTE AUTO 4.99 K/mm3 (1.96-9.15); NEUTROPHILS PERCENT AUTO 75 % (41-73); Platelet Count 261 K/mm3 (150-400); RDW Coefficient Variation 12.7 % (11.7-14.2); RDW Standard Deviation 41.1 fL (35.1-46.3); Red Blood Cell Count 5.01 M/mm3 (3.80-5.20); White Blood Cell Count 6.67 K/mm3 (4.00-11.30)
[2023-05-10 16:49] LABS: Alanine Aminotransfer (ALT/SGP 17 U/L (12-78); Albumin, Blood 3.2 g/dL (3.4-5.0); Albumin/Globulin Ratio 0.6 (0.8-1.8); Alk Phos 134 U/L (50-136); Anion Gap 4 mmol/L (6-16); Aspartate Aminotrans (AST/SGOT 25 U/L (12-37); Bilirubin, Total 0.5 mg/dL (0.1-1.0); Blood Urea Nitrogen 13 mg/dL (8-24); Bun/Creatinine Ratio 18.3 (12.0-20.0); CO2, Blood 31 mmol/L (21-32); Calcium, Blood 9.5 mg/dL (8.5-10.1); Chloride, Blood 105 mmol/L (98-108); Creatinine, Blood 0.71 mg/dL (0.40-1.00); Ethanol (Alcohol), Blood, Med <3 mg/dL; Globulin, Blood 5.3 g/dL (2.2-4.0); Glomerular Filtration Rate 98 (60-); Glucose, Blood 113 mg/dL (70-99); Sodium, Blood 140 mmol/L (136-145); Total Protein, Blood 8.5 g/dL (6.4-8.2)
[2023-05-10 18:54] LABS: Source, Urine Clean Catch
[2023-05-10 19:00] LABS: Appearance, Urine Clear (Clear); Blood, Urine 2+ (Neg); Color, Urine Amber (P-Yellow); Glucose Qualitative, Urine Neg (Neg); Ketones, Urine 2+ (Neg); Leukocyte Esterase, Urine 1+ (Neg); Nitrite, Urine Neg (Neg); Protein, Urine 2+ (Neg); Specific Gravity, Urine 1.015 (1.003-1.022); Urobilinogen, Urine 2+ (Normal)
[2023-05-10 19:15] LABS: Bilirubin, Urine 1+ (Neg)
[2023-05-10 19:16] LABS: Bacteria Few /hpf; Squamous Epithelial Cells Few /hpf (Few); Transitional Epithelial Cells Rare /hpf (0-Rare)
[2023-05-10] MEDS ORDERED: Bactrim Ds Tab1 EACH PO (19:34)
[2023-05-10] MEDS ORDERED: BUPRENORPHINE HC8 MG SL (19:36)
[2023-05-10] MEDS ORDERED: SOAANZ20 M3 PO (19:36)
[2023-05-10] MEDS ORDERED: Pentoxifylline400 MG PO (19:37)
[2023-05-10] MEDS ORDERED: Effexor Xr150 MG PO (19:37)
[2023-05-10] MEDS ORDERED: EUTHYROX25 MC1 PO (19:37)
[2023-05-10] MEDS ORDERED: FERSU300 PO (19:38)
[2023-05-10] MEDS ORDERED: NEURONTIN300 MG PO (19:38)
== END 2023-05-10 19:44 | disposition home or self-care (01) ==
LOC: ER 15:34
PROVIDERS: Physician Assistant
DX: N39.0 Urinary tract infection, site not specified (principal); E87.6 Hypokalemia; I10 Essential (primary) hypertension; J45.909 Unspecified asthma, uncomplicated; E03.9 Hypothyroidism, unspecified; F17.210 Nicotine dependence, cigarettes, uncomplicated
CPT/HCPCS: 70450; 80053; 81001; 82947; 85025; 87086; 93005; 93010; 99285-25

== ENCOUNTER 2023-05-17 01:24 | Day surgery (SDC) | payer OTHER ==
[~2023-05-17 01:24] MED LIST changes: +Bactrim Ds Tab1 EACH PO; +Effexor Xr150 MG PO; +FERSU300 PO; +Pentoxifylline400 MG PO; +SOAANZ20 M3 PO
== END 2023-05-17 22:59 | disposition home or self-care (01) ==
LOC: WOUND 01:24
DX: E11.622 Type 2 diabetes mellitus with other skin ulcer (principal); L97.812 Non-pressure chronic ulcer of other part of right lower leg with fat layer exposed; L97.822 Non-pressure chronic ulcer of other part of left lower leg with fat layer exposed; I83.019 Varicose veins of right lower extremity with ulcer of unspecified site; I83.029 Varicose veins of left lower extremity with ulcer of unspecified site; I10 Essential (primary) hypertension; E03.9 Hypothyroidism, unspecified; F11.11 Opioid abuse, in remission; I87.2 Venous insufficiency (chronic) (peripheral); E11.51 Type 2 diabetes mellitus with diabetic peripheral angiopathy without gangrene
CPT/HCPCS: G0463

== ENCOUNTER → 2023-06-04 | Outpatient (CLI) | payer OTHER ==
[2023-06-04 13:58] LABS: Source, Urine Clean Catch
[2023-06-04 18:44] LABS: Appearance, Urine Clear (Clear); Bilirubin, Urine Neg (Neg); Blood, Urine 1+ (Neg); Color, Urine Yellow (P-Yellow); Glucose Qualitative, Urine Neg (Neg); Ketones, Urine Neg (Neg); Leukocyte Esterase, Urine Neg (Neg); Nitrite, Urine Neg (Neg); Protein, Urine Neg (Neg); Urobilinogen, Urine NORM (Normal); pH, Urine 6.5 (5.0-8.0)
[2023-06-04 19:11] LABS: Bacteria Few /hpf; Red Blood Cells, Urine 0-2 /hpf (0-2); Squamous Epithelial Cells Few /hpf (Few)
== END | disposition home or self-care (01) ==
LOC: LAB SHORT 13:42 → LAB 13:42
PROVIDERS: Family Medicine
DX: R30.0 Dysuria (principal)
CPT/HCPCS: 81001

== ENCOUNTER 2023-08-03 12:01 | Emergency (ER) | payer OTHER ==
[~2023-08-03] VITALS: Ht 170.2 cm; Wt 57.1 kg
[2023-08-03 12:08] VITALS: BP 149/91
[2023-08-03] MEDS ORDERED: Oxymetazoline 0.05% Nasal Relief Spray 15mL BTL ONE (12:50)
== END 2023-08-03 14:21 | disposition home or self-care (01) ==
LOC: ER 12:01
DX: R04.0 Epistaxis (principal); F41.9 Anxiety disorder, unspecified; I10 Essential (primary) hypertension; J45.909 Unspecified asthma, uncomplicated; E03.9 Hypothyroidism, unspecified; F17.210 Nicotine dependence, cigarettes, uncomplicated; Z79.899 Other long term (current) drug therapy; Z79.890 Hormone replacement therapy; Z91.81 History of falling
CPT/HCPCS: 30901; 99283-25; A9270

== ENCOUNTER 2024-02-04 06:25 | Emergency (ER) | payer OTHER ==
[~2024-02-04] VITALS: Ht 157.5 cm; Wt 54.4 kg
[2024-02-04 08:22] VITALS: BP 149/86
== END 2024-02-04 10:10 | disposition home or self-care (01) ==
LOC: ER 06:25
DX: I83.892 Varicose veins of left lower extremity with other complications (principal); Z79.899 Other long term (current) drug therapy
CPT/HCPCS: 99282

== ENCOUNTER 2024-02-10 16:01 | Observation (INO) | payer OTHER ==
[~2024-02-10] VITALS: Ht 170.2 cm; Wt 57.9 kg
[~2024-02-10 16:01] MED LIST changes: -Effexor Xr150 MG PO
[2024-02-10] MEDS ORDERED: Potassium Chloride 20 MEQ/15 ML UDC PO ONE ×2 (16:25→17:45)
[2024-02-10 16:52] LABS: BASOPHILS ABSOLUTE AUTO 0.03 K/mm3 (0.00-0.23); BASOPHILS PERCENT AUTO 1 % (0-2); EOSINOPHILS ABSOLUTE AUTO 0.12 K/mm3 (0.00-0.68); EOSINOPHILS PERCENT AUTO 2 % (0-6); Hematocrit 21.3 % (33.0-51.0); Hemoglobin 6.7 g/dL (11.5-16.0); IMMATURE GRAN ABSOLUTE AUTO 0.01 K/mm3 (0.00-0.10); IMMATURE GRAN PERCENT AUTO 0 % (0-1); LYMPHOCYTES ABSOLUTE AUTO 1.27 K/mm3 (0.84-5.20); LYMPHOCYTES PERCENT AUTO 25 % (21-46); MONOCYTES ABSOLUTE AUTO 0.63 K/mm3 (0.16-1.47); MONOCYTES PERCENT AUTO 13 % (4-13); Mean Corpuscular HGB 27.5 pg (26.0-34.0); Mean Corpuscular HGB Conc 31.5 g/dL (31.5-36.5); Mean Corpuscular Volume 87 fL (80-100); Mean Platelet Volume 9.3 fL (9.1-12.4); NEUTROPHILS ABSOLUTE AUTO 2.99 K/mm3 (1.96-9.15); NEUTROPHILS PERCENT AUTO 59 % (41-73); Platelet Count 329 K/mm3 (150-400); RDW Coefficient Variation 14.8 % (11.7-14.2); RDW Standard Deviation 47.6 fL (35.1-46.3); Red Blood Cell Count 2.44 M/mm3 (3.80-5.20); White Blood Cell Count 5.05 K/mm3 (4.00-11.30)
[2024-02-10 17:13] LABS: Magnesium, Blood 2.1 mg/dL (1.6-2.4)
[2024-02-10 17:34] LABS: Albumin, Blood 2.9 g/dL (3.4-5.0); Albumin/Globulin Ratio 0.6 (0.8-1.8); Bilirubin, Total 0.3 mg/dL (0.1-1.0); Calcium, Blood 8.3 mg/dL (8.5-10.1); Creatinine, Blood 1.05 mg/dL (0.40-1.00); Globulin, Blood 4.5 g/dL (2.2-4.0); Potassium, Blood 2.3 mmol/L (3.5-5.5); Total Protein, Blood 7.4 g/dL (6.4-8.2)
[2024-02-10] MEDS ORDERED: Potassium Chl 20MEQ/Water100ML 100 ML IV ONE (17:50)
[2024-02-10 17:56] LABS: Free Thyroxine 1.1 ng/dL (0.70-1.60)
[2024-02-10 17:58] LABS: Thyroid Stimulating Hormone 2.94 uIU/mL (0.360-4.800)
[2024-02-10] MEDS ORDERED: FLU VACC TS2024-25(6MOS UP)/PF 45 MCG/0.5 ML SYRINGE IM ONE (18:55)
[2024-02-10] MEDS ORDERED: NS 1,000 ML IV ONE (19:26)
[2024-02-10] MEDS ORDERED: Gabapentin 300 MG Cap PO SCH (21:00)
[2024-02-10] MEDS ORDERED: Pentoxifylline 400 MG TabCR PO SCH (21:00)
[2024-02-10] MEDS ORDERED: buprenorphine HCL 2 MG TAB.SUBL SL SCH (21:00)
[2024-02-10 21:18] VITALS: BP 151/93
[2024-02-10 21:31] VITALS: BP 155/79
[2024-02-10 21:33] LABS: Bun/Creatinine Ratio 19.4 (12.0-20.0); Calcium, Blood 8.3 mg/dL (8.5-10.1); Creatinine, Blood 1.03 mg/dL (0.40-1.00); Potassium, Blood 2.7 mmol/L (3.5-5.5)
[2024-02-10 22:55] VITALS: BP 140/81
[2024-02-10 23:15] VITALS: BP 140/82
[2024-02-11 00:26] VITALS: BP 138/80
[2024-02-11 01:27] VITALS: BP 135/81
[2024-02-11 02:40] VITALS: BP 166/84
[2024-02-11] MEDS ORDERED: DiphenhydrAMINE HCL 25 MG Cap PO PRN (03:45)
[2024-02-11 04:21] LABS: Source, Urine Clean Catch
[2024-02-11 04:41] LABS: Bilirubin, Urine Neg (Neg); Blood, Urine Neg (Neg); Glucose Qualitative, Urine Neg (Neg); Ketones, Urine Neg (Neg); Leukocyte Esterase, Urine Neg (Neg); Nitrite, Urine Neg (Neg); Protein, Urine 1+ (Neg); Urobilinogen, Urine NORM (Normal); pH, Urine 6.5 (5.0-8.0)
[2024-02-11 04:47] LABS: Appearance, Urine Clear (Clear); Color, Urine Yellow (P-Yellow)
[2024-02-11 05:41] LABS: U Amphetamine Screen Not Detected; U Barbituate Screen Not Detected; U Benzodiazapine Screen Not Detected; U Buprenorphine Screen DETECTED; U Cannabinoids Screen Not Detected; U Cocaine Screen Not Detected; U Methadone Screen DETECTED; U Methamphetamine Screen Not Detected; U Opiates Screen Not Detected; U Oxycodone Screen Not Detected; U Phencyclidine Screen Not Detected
[2024-02-11] MEDS ORDERED: Levothyroxine Sodium 0.025 MG Tab PO SCH (06:00)
--- NOTE | 2024-02-11 06:28 | NUR ---
NOC SUMMARY- PT ARRIVED TO ROOM IN NO DISTRESS. PT RECIEVED BOTH UNITS OF ORDERED BLOOD. PT HAS MANY SCATTERED WOUNDS FROM HER SCRATCHING HER SELF. PT STATES SHE SCRATCHES HERSELF IN HER SLEEP. PT BEHAVIOR CHANGED DURING SHIFT. PT BECAME VERY SOMNOLENT AND TEARFUL AT TIMES. PT WOUNDS WERE BANADAGED BUT SHE CONTINUES TEAR THEM OFF. PT PULLED OUT ONE OF HER IV'S. PT REMAINS ON TELE AND NO EVENTS REPORTED. PT IS ON CONTINOUS SPO2 AND HAS BEEN >90%. PT HAS A UNSTEADY GAIT AND REQUIRES FWW W/ GB. PT HAS 2 LARGE BRUISES ON EACH HIP. PT STATES BRUISES IS FROM FREQUENTLY FALLING AT HOME. CALL LIGHT IN REACH AND BED ALARM ON.
[2024-02-11 06:34] LABS: BASOPHILS ABSOLUTE AUTO 0.03 K/mm3 (0.00-0.23); BASOPHILS PERCENT AUTO 0 % (0-2); EOSINOPHILS ABSOLUTE AUTO 0.14 K/mm3 (0.00-0.68); EOSINOPHILS PERCENT AUTO 2 % (0-6); Hemoglobin 8.8 g/dL (11.5-16.0); IMMATURE GRAN ABSOLUTE AUTO 0.03 K/mm3 (0.00-0.10); IMMATURE GRAN PERCENT AUTO 0 % (0-1); LYMPHOCYTES ABSOLUTE AUTO 1.03 K/mm3 (0.84-5.20); LYMPHOCYTES PERCENT AUTO 14 % (21-46); MONOCYTES PERCENT AUTO 10 % (4-13); Mean Corpuscular HGB 28.4 pg (26.0-34.0); Mean Corpuscular HGB Conc 32.6 g/dL (31.5-36.5); Mean Corpuscular Volume 87 fL (80-100); Mean Platelet Volume 9.7 fL (9.1-12.4); NEUTROPHILS ABSOLUTE AUTO 5.37 K/mm3 (1.96-9.15); NEUTROPHILS PERCENT AUTO 74 % (41-73); Platelet Count 312 K/mm3 (150-400); RDW Coefficient Variation 15.1 % (11.7-14.2); RDW Standard Deviation 47.1 fL (35.1-46.3)
[2024-02-11 07:04] VITALS: BP 132/79
[2024-02-11 07:07] LABS: Albumin, Blood 2.8 g/dL (3.4-5.0); Albumin/Globulin Ratio 0.6 (0.8-1.8); Bilirubin, Total 0.6 mg/dL (0.1-1.0); Calcium, Blood 8.7 mg/dL (8.5-10.1); Creatinine, Blood 0.94 mg/dL (0.40-1.00); Globulin, Blood 4.4 g/dL (2.2-4.0); Magnesium, Blood 2.2 mg/dL (1.6-2.4); Percent Saturation 9.7 % (15.0-50.0); Potassium, Blood 3.1 mmol/L (3.5-5.5); Total Protein, Blood 7.2 g/dL (6.4-8.2)
[2024-02-11] MEDS ORDERED: NS 1,000 ML IV SCH ×2 (07:50→08:30)
[2024-02-11] MEDS ORDERED: Potassium Chloride 20 MEQ TabCR PO SCH (08:00)
[2024-02-11] MEDS ORDERED: Venlafaxine HCl 75 MG CapCR PO SCH (09:00)
[2024-02-11] MEDS ORDERED: Furosemide 80 MG Tab PO SCH (09:00)
--- NOTE | 2024-02-11 10:07 | NUR ---
At start of shift patient is awake, able to answer questions. She has uncontrollable muscle twitching and involuntary muscle control of arms and legs. She is impulsive and attempting to get out of bed. pt denies pain, taking medications not prescribed to her. Pt reports she has uncontrolled muscle twitching at home "sometimes". Notified charge authorizer of need for a sitter to keep pt safe from falling out of bed. Notified Dr. Fonseca of concerns of uncontrolled muscle twitching and movement and sitter being requested. Also notified him of methadone found in her system. He ordered NS at 100 mls per hour. Spouse came in this morning. In discussing concerns with him spouse reported his does get uncontrolled muscle movement at times, usually after she has taken 3 gabapentins at bedtime instead of taking throughout the day. Spouse does not take methadone so he does not know how his got methadone in her system. Pt started on the NS. Held lasix as pt reported feeling dehydrated and very thirsty. Due to volume depletion held lasix. Also held gabapentin due to spouse reporting pt getting muscle twitching after taking gabapentin. Gave venlafexine and buperinorphin to prevent withdrawal symptoms.
--- NOTE | 2024-02-11 11:00 | NUR ---
Pt fell asleep, rr are even and unlabored and she easily wakes up. sats drop to 84% while asleep. pt normally wears 2 lpm via CPAP bleed in when asleep at home. pt refused hospital CPAP set up. Requested spouse to bring in home cpap for pt. spouse agreed to bring in. Applied 2 lpm of oxygen via NC to maintain sats above 90% while pt is sleeping. pt sats are 96% at this time.
[2024-02-11 13:58] LABS: Hematocrit 26.1 % (33.0-51.0); Hemoglobin 8.4 g/dL (11.5-16.0)
[2024-02-11 15:13] VITALS: BP 128/75
[2024-02-11] MEDS ORDERED: Ondansetron Odt8 MG SL (15:34)
[2024-02-11] MEDS ORDERED: SULFAMETHOXAZO1 EACH PO (15:38)
--- NOTE | 2024-02-11 17:08 | NUR ---
SHIFT SUMMARY PT A&OX4. PT ADMITTED DUE TO ANEMIA. PT LAST HGB WAS 8.4. PT HAS NOT REPORTED PAIN THROUGH SHIFT. PT HAS A SITTER AT BEDSIDE DUE TO THIS AM PT WAS BEING IMPULSIVE AND HAD INVOLUNTARY MUSCLE MOVEMENTS. PT HAS BEEN SLEEPING THROUGH SHIFT. PT IS AROUSABLE BUT DOES NOT STAY AWAKE. PT HAS CONT. PULSE OX ON, SATS ARE 98%. PT ON 2L O2 VIA N/C. PT ON TELE. PT HAS NORMAL SALINE RUNNING AT 100ML/HR. CALL LIGHT IN REACH.
--- NOTE | 2024-02-11 18:07 | NUR ---
PT WOKE UP WITH VERBAL STIMULI AT THIS TIME. PT IS A/O X 4, SHE IS NOT EXPERIENCING ANY UNCONTROLLED MUSCLE MOVEMENT OR TWITCHING AT THIS TIME. SHE IS EATING DINNER AND ABLE TO FEED HERSELF. HELD LASIX AT THIS TIME. WILL GIVE ORAL POTASSIUM.
[2024-02-11 19:14] VITALS: BP 120/72
[2024-02-11 20:33] LABS: Hematocrit 27.5 % (33.0-51.0); Hemoglobin 8.6 g/dL (11.5-16.0)
[2024-02-12 02:21] LABS: BASOPHILS ABSOLUTE AUTO 0.02 K/mm3 (0.00-0.23); BASOPHILS PERCENT AUTO 0 % (0-2); EOSINOPHILS ABSOLUTE AUTO 0.07 K/mm3 (0.00-0.68); EOSINOPHILS PERCENT AUTO 2 % (0-6); Hematocrit 28.7 % (33.0-51.0); IMMATURE GRAN ABSOLUTE AUTO 0.03 K/mm3 (0.00-0.10); IMMATURE GRAN PERCENT AUTO 1 % (0-1); LYMPHOCYTES ABSOLUTE AUTO 0.77 K/mm3 (0.84-5.20); LYMPHOCYTES PERCENT AUTO 17 % (21-46); MONOCYTES PERCENT AUTO 11 % (4-13); Mean Corpuscular HGB 27.8 pg (26.0-34.0); Mean Corpuscular HGB Conc 31.4 g/dL (31.5-36.5); Mean Corpuscular Volume 89 fL (80-100); Mean Platelet Volume 9.7 fL (9.1-12.4); NEUTROPHILS ABSOLUTE AUTO 3.09 K/mm3 (1.96-9.15); NEUTROPHILS PERCENT AUTO 69 % (41-73); Platelet Count 284 K/mm3 (150-400); RDW Standard Deviation 48.2 fL (35.1-46.3); Red Blood Cell Count 3.24 M/mm3 (3.80-5.20); White Blood Cell Count 4.48 K/mm3 (4.00-11.30)
[2024-02-12 02:37] LABS: Bun/Creatinine Ratio 14.3 (12.0-20.0); Calcium, Blood 8.6 mg/dL (8.5-10.1); Creatinine, Blood 0.84 mg/dL (0.40-1.00); Potassium, Blood 3.6 mmol/L (3.5-5.5)
[2024-02-12 03:26] VITALS: BP 127/73
--- NOTE | 2024-02-12 04:38 | NUR ---
SUMMARY: PT A/OX4 BUT REMAINS VERY DROWSY THIS SHIFT. SHE'S WAKEFUL TO VOICE AND ABLE TO SPECIFY NEEDS BUT FALLS ASLEEP QUICKLY. GABAPENTIN HELD FOR SOMNOLENCE BUT HS BUPRENORPHINE WAS STILL PROVIDED. PT IS FORGETFUL W/SITTER PRESENT FOR FREQ IMPULSIVITY AND FALL RISK. SHE CONT'S TO HAVE OCC.INVOLUNTARY MUSCLE TWITCHING BUT PT REPORTED THIS IS WNL AND SHE'S SEEING A "SPECIALIST FOR IT SOON". SHE HAS SCATTERED SCABS, EXCORIATIONS AND BRUISING T/O BODY D/T URTICARIA AND RECENT FALLS. BENEDRYL PROVIDED PRN AND PT HAS NS INFUSING AT 100 ML/HR, SL'D AFTER THIS BAG. SHE'S NSR AT 70'S-80'S BPM ON TELE. PT TOLERATES 2L O2 VIA NC [place] AND HAS O2 BLEED IN VIA CPAP WHEN SLEEPING. NO ACUTE CHANGES, VSS/AFEBRILE. WCTM AND REPORT TO DAY RN.
[2024-02-12 07:22] VITALS: BP 145/85
[2024-02-12 15:19] VITALS: BP 124/80
[2024-02-12] MEDS ORDERED: POTCHL20ER PO (15:37)
--- NOTE | 2024-02-12 17:10 | NUR ---
DISCHARGE NOTE- PT EDUCATED BY CORTEZ RN AT THE TIME OF DISCHARGE. PT IV AND TELE DC'D AT THAT TIME. PT ESCORTED OUT VIA WC BY THE SUPERVISOR SHRIMP POND, NO S&S OF DISTRESS AT THE TIME OF DISCHARGE. PER DR STONE HOME O2 EVAL NOT NEEDED ORDER CANCELLED
== END 2024-02-12 16:27 | disposition home or self-care (01) ==
LOC: ER 16:01 → MEDS 16:02 → ERHOLD 16:02 → MEDS 21:10
PROVIDERS: Emergency Medicine; Family Medicine; Internal Medicine; ADMIT Student in an Organized Health Care Education/Training Program
DX: D62 Acute posthemorrhagic anemia (principal); E87.6 Hypokalemia; I83.899 Varicose veins of unspecified lower extremity with other complications; I87.2 Venous insufficiency (chronic) (peripheral); I12.9 Hypertensive chronic kidney disease with stage 1 through stage 4 chronic kidney disease, or unspecified chronic kidney disease; N18.2 Chronic kidney disease, stage 2 (mild); G47.33 Obstructive sleep apnea (adult) (pediatric); E03.9 Hypothyroidism, unspecified; F17.210 Nicotine dependence, cigarettes, uncomplicated; Z79.890 Hormone replacement therapy; Z79.899 Other long term (current) drug therapy
CPT/HCPCS: 36415; 36430; 80048; 80053; 82728; 83540; 83550; 83735; 84439; 84443; 85014; 85018; 85025; 86850; 86900; 86901; 86923; 90656; 93005; 93010; 93971; 94762; 96361; 96365; 96366; 99284-25; A9270; G0008; G0378; J3480; J7030; P9016

== ENCOUNTER 2024-03-31 12:37 | Inpatient (IN) | payer OTHER ==
[~2024-03-31] VITALS: Ht 167.6 cm; Wt 55.2 kg
[~2024-03-31 12:37] MED LIST changes: +Ondansetron Odt8 MG SL; +POTCHL20ER PO; +SOAANZ20 M1 PO; -SOAANZ20 M3 PO; +SULFAMETHOXAZO1 EACH PO
[2024-03-31 13:12] LABS: BASOPHILS ABSOLUTE AUTO 0.07 K/mm3 (0.00-0.23); BASOPHILS PERCENT AUTO 1 % (0-2); Hematocrit 35.6 % (33.0-51.0); Hemoglobin 10.7 g/dL (11.5-16.0); LYMPHOCYTES ABSOLUTE AUTO 0.81 K/mm3 (0.84-5.20); LYMPHOCYTES PERCENT AUTO 8 % (21-46); MONOCYTES PERCENT AUTO 14 % (4-13); Mean Corpuscular HGB 23.9 pg (26.0-34.0); Mean Corpuscular HGB Conc 30.1 g/dL (31.5-36.5); Mean Corpuscular Volume 80 fL (80-100); Mean Platelet Volume 9.1 fL (9.1-12.4); NRBC ABSOLUTE 0.08 K/mm3 (0.00-0.02); NRBC Auto 0.8 /100 WBC (0.0-0.2); Platelet Count 452 K/mm3 (150-400); RDW Coefficient Variation 15.1 % (11.7-14.2); RDW Standard Deviation 43.7 fL (35.1-46.3); Red Blood Cell Count 4.47 M/mm3 (3.80-5.20); White Blood Cell Count 9.89 K/mm3 (4.00-11.30)
[2024-03-31 13:13] LABS: EOSINOPHILS ABSOLUTE AUTO 0.03 K/mm3 (0.00-0.68); EOSINOPHILS PERCENT AUTO 0 % (0-6); IMMATURE GRAN PERCENT AUTO 1 % (0-1); NEUTROPHILS ABSOLUTE AUTO 7.48 K/mm3 (1.96-9.15); NEUTROPHILS PERCENT AUTO 76 % (41-73)
[2024-03-31 13:33] LABS: Magnesium, Blood 2.4 mg/dL (1.6-2.4)
[2024-03-31 13:34] LABS: Albumin, Blood 2.3 g/dL (3.4-5.0); Albumin/Globulin Ratio 0.4 (0.8-1.8); Bilirubin, Total 0.5 mg/dL (0.1-1.0); Bun/Creatinine Ratio 29.7 (12.0-20.0); Calcium, Blood 9.9 mg/dL (8.5-10.1); Creatinine, Blood 0.74 mg/dL (0.40-1.00); Globulin, Blood 6.2 g/dL (2.2-4.0); Phosphorus, Blood 2.4 mg/dL (2.5-4.9); Potassium, Blood 2.8 mmol/L (3.5-5.5); Total Protein, Blood 8.5 g/dL (6.4-8.2)
[2024-03-31] MEDS ORDERED: Potassium Chl 20MEQ/Water100ML 100 ML IV SCH (14:10)
[2024-03-31 14:21] LABS: Source, Urine Clean Catch
[2024-03-31 14:24] LABS: Appearance, Urine Clear (Clear); Bilirubin, Urine Neg (Neg); Blood, Urine 2+ (Neg); Color, Urine Yellow (P-Yellow); Glucose Qualitative, Urine Neg (Neg); Ketones, Urine 1+ (Neg); Leukocyte Esterase, Urine Neg (Neg); Nitrite, Urine Neg (Neg); Protein, Urine 3+ (Neg); Urobilinogen, Urine 1+ (Normal)
[2024-03-31 14:33] LABS: Bacteria Few /hpf; Squamous Epithelial Cells Few /hpf (Few); White Blood Cells, Urine 0-2 /hpf (0-5)
[2024-03-31 14:39] LABS: U Amphetamine Screen Not Detected; U Barbituate Screen Not Detected; U Benzodiazapine Screen Not Detected; U Buprenorphine Screen DETECTED; U Cannabinoids Screen Not Detected; U Cocaine Screen Not Detected; U Methadone Screen Not Detected; U Methamphetamine Screen Not Detected; U Opiates Screen Not Detected; U Oxycodone Screen Not Detected; U Phencyclidine Screen Not Detected
[2024-03-31 15:05] LABS: Influenza A, PCR NEGATIVE (NEGATIVE); Influenza B, PCR NEGATIVE (NEGATIVE); Resp Syncytial Virus, PCR NEGATIVE (NEGATIVE); SARS-Cov-2 (COVID-19) PCR, MMC NEGATIVE (NEGATIVE)
[2024-03-31] MEDS ORDERED: CefTRIAXone Sodium 1,000 MG in NS 100 ML IV ONE (15:20)
[2024-03-31] MEDS ORDERED: Doxycycline Hyclate 100 MG in Dextrose 5% 250 ML IV ONE (15:20)
[2024-03-31] MEDS ORDERED: Ondansetron HCl 2 MG / ML 2ML Vial IV PRN (16:05)
[2024-03-31] MEDS ORDERED: Ipratropium/Albuterol SulF 2.5-0.5MG/3 ML Amp INH SCH (16:05)
[2024-03-31] MEDS ORDERED: FLU VACC TS2024-25(6MOS UP)/PF 45 MCG/0.5 ML SYRINGE IM ONE (16:05)
[2024-03-31] MEDS ORDERED: Potassium Phosphate Dibasic 30 MM in NS 500 ML IV SCH (16:30)
[2024-03-31] MEDS ORDERED: NS 1,000 ML IV SCH (16:45)
[2024-03-31] MEDS ORDERED: MethylPREDNISolone Sod Succ 125 MG Vial IV SCH (17:00)
[2024-03-31 17:28] VITALS: BP 177/87
[2024-03-31] MEDS ORDERED: HydrALAZINE HCl 20 MG / ML 1ML Vial IV PRN (17:40)
[2024-03-31] MEDS ORDERED: VENL150ER PO (18:05)
[2024-03-31 18:07] LABS: Base Excess Venous 13.1 mmol/L; Bicarbonate Venous 35.5 mmol/L (24.0-30.0); PCO2 Venous 48.3 mmHg (38-42); pH Blood Venous 7.49 (7.34-7.37)
[2024-03-31] MEDS ORDERED: FentaNYL Citrate 50 MCG/ML 2 ML Injection IV PRN (18:35)
[2024-03-31] MEDS ORDERED: Gabapentin 300 MG Cap PO PRN (18:45)
[2024-03-31] MEDS ORDERED: Buprenorphine HCL/Naloxone HCL 8MG-2MG Tab SL SCH (19:00)
--- NOTE | 2024-03-31 19:37 | NUR ---
ARRIVAL TO PCU 6 / SHIFT SUMMARY PT ARRIVED TO PCU 6 AT APPROXIMATELY 1715. PT SLID OVER FROM [facility] BY 4 CLINICAL STAFF MEMBERS. PT WITH SCABS AND BRUISING SCAATTERED THROUGHOUT, PHOTOS IN CHART, REPORTS PT FALLS AT HOME AND SCRATCHES IN HER SLEEP. PT RESPONDS TO VERBAL STIMULI AND ANSWERS QUESTIONS APPROPRIATELY THOUGH IS VERY DROWSY. PT DOES NOT WANT TO KEEP EYES OPEN DURING CONVERSATION. PASSED BEDSIDE SWALLOW DURING ASSESSMENT BUT NOT STAYING AWAKE LONG ENOUGH TO EAT A MEAL. BP ELEVATED, PHYSICIAN NOTIFIED, ORDERS PLACED. SINUS TACH/AFLUTTER 100'S, WHEN PT DRINKS WATER, HR DROPS TO 70'S THEN RETURNS TO LOW 100'S; PHYSICIAN NOTIFIED, EKG DONE. AT BEDSIDE ASSISTING WITH Hx AND MED REC. UNABLE TO COMPLETE MED REC D/T PT AND NOT REMEMBERING ALL MEDICATIONS. TO BRING IN PILL BOTTLES IN MORNING. NOTIFIED PHYSICIAN OF PTs PAIN AND REPORTED HOME REGIMEN FOR PAIN, ORDERS PLACED. NO OTHER EVENTS, REPORT GIVEN TO ONCOMING RN.
[2024-03-31 20:03] VITALS: BP 171/78
[2024-03-31] MEDS ORDERED: Doxycycline Hyclate 100 MG TAB PO SCH (21:00)
[2024-03-31] MEDS ORDERED: buprenorphine HCL 2 MG TAB.SUBL SL SCH (21:00)
[2024-03-31] MEDS ORDERED: Lactobacil 2-S.Thermo-Bifido 1 1 Cap PO SCH (21:00)
[2024-03-31 22:00] VITALS: BP 170/86
[2024-03-31] MEDS ORDERED: Metoprolol Tartrate 1 MG/ML 5 ML VIAL IV PRN (22:09)
[2024-03-31 22:34] VITALS: BP 157/80
[2024-04-01] VITALS (8 sets, daily range): BP systolic 132–163; BP diastolic 70–87
--- NOTE | 2024-04-01 | NUR ---
PT REMAINS A&OX4. PT WAS HYPERTENSIVE AT START OF SHIFT WITH SBP ABOVE 170s. PREVIOUS RN HAD GIVEN PRN HYDRALAZINE HR BEFORE SHIFT CHANGE. THIS NURSE NOTIFIED DR. WEBER OF MINIMAL IMPROVEMENT. METOPROLOL ORDERS PLACED HOWEVER THIS NURSE DID NOT ADMINISTER DUE TO BP STABALIZING. CURRENTLY PTS BP READS 140s SBP. PT HAS BEEN TITRATED DOWN TO 5L NC AT THIS TIME BY THIS NURSE FOR SATS >92%. FLUIDS CURRENTLY RUNNING. PT ABLE TO SWALLOW PILLS WHOLE WITH NO ISSUE. PT NOTES SHE HAS SCIATICA PAIN, PRN GABAPENTIN GIVEN WITH GOOD RELIEF. PT RESTING COMFORTABLY AT THIS TIME WITH FAMILY AT BEDSIDE. NO FURTHER QUESTIONS OR CONCERNS AT THIS TIME. PLAN OF CARE ONGOING.
[2024-04-01 05:42] LABS: Bun/Creatinine Ratio 30.9 (12.0-20.0); Calcium, Blood 9.4 mg/dL (8.5-10.1); Creatinine, Blood 0.65 mg/dL (0.40-1.00); Potassium, Blood 3.3 mmol/L (3.5-5.5)
--- NOTE | 2024-04-01 05:50 | NUR ---
SHIFT SUMMARY PT MORE ALERT THIS AM. VSS ON 1L NC >95%. AFEBRILE THROUGHOUT NIGHT. PT REMAINS ST 90s-100s ON TELE. PT C/O SCIATIC PAIN, PRN FENTANYL GIVEN WITH GOOD RELIEF. PTS CHIANG PATENT AND DRAINING APPROPRIATELY. NO FURTHER QUESTIONS OR CONCERNS AT THIS TIME. PLAN OF CARE ONGOING.
[2024-04-01] MEDS ORDERED: Pantoprazole Sodium 20 MG Tab PO SCH (06:00)
[2024-04-01] MEDS ORDERED: Levothyroxine Sodium 0.025 MG Tab PO SCH (06:00)
[2024-04-01] MEDS ORDERED: Potassium Chloride 20 MEQ TabCR PO ONE (08:05)
[2024-04-01] MEDS ORDERED: Losartan Potassium 25 MG Tab PO SCH (09:00)
[2024-04-01] MEDS ORDERED: Ferrous Sulfate 325 MG Tab PO SCH (09:00)
[2024-04-01] MEDS ORDERED: PredniSONE 20 MG Tab PO SCH (09:00)
[2024-04-01] MEDS ORDERED: Enoxaparin 40 MG/0.4 ML SYR SC SCH (09:00)
[2024-04-01] MEDS ORDERED: Venlafaxine HCl 75 MG CapCR PO SCH ×2 (09:00)
[2024-04-01] MEDS ORDERED: Venlafaxine HCl 25 MG Tab PO SCH (09:00)
[2024-04-01] MEDS ORDERED: NS 250 ML IV PRN (10:30)
--- NOTE | 2024-04-01 12:56 | NUR ---
RN NOTE MS RESTREPO IS ALERT, ORIENTATED X4, APPROPRIATE CONVERSATION. SHE HAS MULTIPLE DRY SCABS ON HER ARMS AND LEGS AND BEHIND HER NECK WHICH SHE SAID IS NORMAL FOR HER D/T SCRATCHING HERSELF. UP WITH PHYSICAL THERAPIST WITH GAIT BELT, WALKER AND 1 ASSIST. NOTED R LEANING WHEN STANDING WHICH PT SAID IS D/T SCIATICA/BASELINE. SHE DOES C/O RIGHT HAND LIMITATION IN DEXTERITY, DIFFICULTY HOLDING A CUP. SHE DENIES ANY PAIN TO THE RIGHT HAND. IVF STOPPED THIS AM PER V.O FROM DR TYLER. CHIANG REMOVED AT ~10AM, SHE HAS NOT VOIDED YET. PT CHANGED TO MEDICAL STATUS. REPORT CALLED TO JENNIFER NURSE ON MEDICAL FLOOR AND PT WILL TRANSFER ONCE THE ROOM IS READY TO 364. FAMILY AT BEDSIDE.
--- NOTE | 2024-04-01 13:28 | NUR ---
RN NOTE PT LEFT PCU VIA WHEELCHAIR WITH HER TO ROOM 364
[2024-04-01] MEDS ORDERED: CefTRIAXone Sodium 1,000 MG in NS 100 ML IV SCH (16:00)
--- NOTE | 2024-04-01 19:10 | NUR ---
PT CAME TO THE UNIT [facility] 1500. PTS STATUS HAS NOT CHANGED SINCE TRANSFER. PT IS A&OX4, VSS AND ON 2LNC. PT AMBULATES WITH 1A/GB/W. PT AND LOVED ONES HAVE NO QUESTIONS OR COCNERNS SINCE TRANSFER.
--- NOTE | 2024-04-02 04:19 | NUR ---
SHIFT SUMMARY; PATIENT BREATHING MUCH EASIER TONIGHT. MEDICATED AT HS WITH NEUROTIN. 1 OF HER 3 SL REMOVED FOR PATIENT COMFORT. TELE SR-ST 99
[2024-04-02 04:32] VITALS: BP 125/70
[2024-04-02 05:18] LABS: Bun/Creatinine Ratio 37.1 (12.0-20.0); Calcium, Blood 9.6 mg/dL (8.5-10.1); Creatinine, Blood 1.05 mg/dL (0.40-1.00); Potassium, Blood 3.4 mmol/L (3.5-5.5)
[2024-04-02 07:18] VITALS: BP 139/67
[2024-04-02] MEDS ORDERED: Potassium Chloride 20 MEQ TabCR PO ONE (07:50)
[2024-04-02] MEDS ORDERED: IPRAT-ALBUT 0.5-3 ML INH (12:07)
[2024-04-02] MEDS ORDERED: VENL150ER PO (12:08)
[2024-04-02] MEDS ORDERED: VISBIOME 112.51 EACH PO (12:09)
[2024-04-02] MEDS ORDERED: Prednisone20 MG PO (12:09)
[2024-04-02] MEDS ORDERED: ALBU90OI INH (12:10)
[2024-04-02] MEDS ORDERED: AMOCLA875 PO (12:11)
[2024-04-02] MEDS ORDERED: DOXY100 PO (12:12)
[2024-04-02] MEDS ORDERED: FLUTICASONE-SA1 EAC1 INH (12:13)
[2024-04-02] MEDS ORDERED: POTCHL20ER PO (12:15)
--- NOTE | 2024-04-02 14:43 | NUR ---
shift summary PT A&OX4 AND ANSWERS QUESTIONS APPROPRIATELY. VSS, COMPLAINS OF PAIN WITH INHALATION, NO CARDIAC SYMPTOMS NOTED, EDUCATED PT ON SYMPTOMS RELATED TO PNEUMONIA. NO ACUTE EVENTS AT THIS TIME. PT TO BE DISCHARGED HOME. ALL BELONGINGS W/ PT. PT D/TERRY HOME VIA W/C AROUND 1320. CALL RECEIVED FROM [facility], VERIFIED W/ DR TYLER TORSEMIDE AND POTASSIUM MEDICATION REGIMENS. PERIPHERAL IV REMOVED, PT DISCHARGED HOME WITH NO ACUTE EVENTS
== END 2024-04-02 13:25 | disposition home health service (06) | DRG 871 ==
LOC: ER 12:37 → ICUE 12:38 → PCU 16:00 → MEDS 04-01 13:29
PROVIDERS: Emergency Medicine; Physician Assistant; ADMIT Internal Medicine
DX: A41.9 Sepsis, unspecified organism (principal); G92.8 Other toxic encephalopathy; J18.9 Pneumonia, unspecified organism; J96.01 Acute respiratory failure with hypoxia; J96.02 Acute respiratory failure with hypercapnia; J44.0 Chronic obstructive pulmonary disease with (acute) lower respiratory infection; R64 Cachexia; Z68.1 Body mass index [BMI] 19.9 or less, adult; I50.32 Chronic diastolic (congestive) heart failure; I13.0 Hypertensive heart and chronic kidney disease with heart failure and stage 1 through stage 4 chronic kidney disease, or unspecified chronic kidney disease; Z28.21 Immunization not carried out because of patient refusal; R65.20 Severe sepsis without septic shock; F41.9 Anxiety disorder, unspecified; E03.9 Hypothyroidism, unspecified; G47.33 Obstructive sleep apnea (adult) (pediatric); N18.2 Chronic kidney disease, stage 2 (mild); E87.6 Hypokalemia; E83.39 Other disorders of phosphorus metabolism; F17.210 Nicotine dependence, cigarettes, uncomplicated; Z79.890 Hormone replacement therapy; Z79.899 Other long term (current) drug therapy; Z98.890 Other specified postprocedural states
CPT/HCPCS: 0241U; 36415; 51702; 70450; 71045; 71260; 80048; 80053; 80320; 81001; 82803; 82947; 83605; 83690; 83735; 83880; 84100; 84484; 85025; 85379; 93005; 93010; 94640; 94664; 94761; 94762; 96365-59; 97116; 97162; 99285-25; A9270; J0360; J0696; J1650; J2470; J2919; J3010; J3480; J7030; J7040; J7060; J7512; Q9967

== ENCOUNTER → 2024-06-08 | Outpatient (CLI) | payer OTHER ==
[~2024-06-08] MED LIST changes: +AMOCLA875 PO; +DOXY100 PO; +FLUTICASONE-SA1 EAC1 INH; +IPRAT-ALBUT 0.5-3 ML INH; +Prednisone20 MG PO; +VENL150ER PO
== END ==
LOC: LAB 17:25 → LAB SHORT 17:25
DX: L03.116 Cellulitis of left lower limb (principal)
CPT/HCPCS: 87070; 87075; 87077; 87147; 87186; 87205

== ENCOUNTER 2024-08-01 12:54 | Emergency (ER) | payer OTHER ==
[~2024-08-01] VITALS: Ht 172.7 cm; Wt 59.0 kg
[2024-08-01] MEDS ORDERED: HYDROcodone 5-APAP 325 TAB PO ONE (14:40)
[2024-08-01 15:30] VITALS: BP 144/93
== END 2024-08-01 16:17 | disposition home or self-care (01) ==
LOC: ER 12:54
DX: M54.31 Sciatica, right side (principal); I87.2 Venous insufficiency (chronic) (peripheral); F17.210 Nicotine dependence, cigarettes, uncomplicated; I12.9 Hypertensive chronic kidney disease with stage 1 through stage 4 chronic kidney disease, or unspecified chronic kidney disease; N18.2 Chronic kidney disease, stage 2 (mild); J45.909 Unspecified asthma, uncomplicated; Z79.899 Other long term (current) drug therapy; Z79.51 Long term (current) use of inhaled steroids; Z79.890 Hormone replacement therapy; Z79.891 Long term (current) use of opiate analgesic; Z79.52 Long term (current) use of systemic steroids; Z79.83 Long term (current) use of bisphosphonates; Z79.82 Long term (current) use of aspirin
CPT/HCPCS: 72100; 99283-25; A9270

== ENCOUNTER 2024-09-15 08:26 | Emergency (ER) | payer OTHER ==
[~2024-09-15] VITALS: Ht 170.2 cm; Wt 54.4 kg
[2024-09-15 11:08] VITALS: BP 163/86
[2024-09-15] MEDS ORDERED: OxyCODONE HCL 5 MG TAB PO ONE (11:15)
[2024-09-15] MEDS ORDERED: OXYC5 PO (11:58)
== END 2024-09-15 12:10 | disposition home or self-care (01) ==
LOC: ER 08:26
DX: S42.022A Displaced fracture of shaft of left clavicle, initial encounter for closed fracture (principal); I12.9 Hypertensive chronic kidney disease with stage 1 through stage 4 chronic kidney disease, or unspecified chronic kidney disease; N18.2 Chronic kidney disease, stage 2 (mild); J45.909 Unspecified asthma, uncomplicated; E03.9 Hypothyroidism, unspecified; G47.33 Obstructive sleep apnea (adult) (pediatric); Z79.890 Hormone replacement therapy; Z79.51 Long term (current) use of inhaled steroids; Z79.899 Other long term (current) drug therapy; F17.210 Nicotine dependence, cigarettes, uncomplicated; W10.9XXA Fall (on) (from) unspecified stairs and steps, initial encounter
CPT/HCPCS: 73000; 73030; 99283-25; A9270

== ENCOUNTER → 2025-01-12 | Outpatient (CLI) | payer OTHER ==
[~2025-01-12] MED LIST changes: +OXYC5 PO
== END ==
LOC: LAB SHORT 17:31 → LAB 17:31
DX: R31.9 Hematuria, unspecified (principal)
CPT/HCPCS: 87077; 87086; 87186

== ENCOUNTER 2025-01-30 08:55 | Emergency (ER) | payer OTHER ==
[~2025-01-30] VITALS: Ht 170.2 cm; Wt 50.8 kg
[2025-01-30 09:50] LABS: BASOPHILS ABSOLUTE AUTO 0.04 K/mm3 (0.00-0.23); BASOPHILS PERCENT AUTO 1 % (0-2); EOSINOPHILS ABSOLUTE AUTO 0.13 K/mm3 (0.00-0.68); EOSINOPHILS PERCENT AUTO 2 % (0-6); Hematocrit 25.1 % (33.0-51.0); Hemoglobin 7.3 g/dL (11.5-16.0); IMMATURE GRAN ABSOLUTE AUTO 0.01 K/mm3 (0.00-0.10); IMMATURE GRAN PERCENT AUTO 0 % (0-1); LYMPHOCYTES ABSOLUTE AUTO 1.04 K/mm3 (0.84-5.20); LYMPHOCYTES PERCENT AUTO 17 % (21-46); MONOCYTES ABSOLUTE AUTO 0.62 K/mm3 (0.16-1.47); MONOCYTES PERCENT AUTO 10 % (4-13); Mean Corpuscular HGB Conc 29.1 g/dL (31.5-36.5); Mean Corpuscular Volume 72 fL (80-100); NEUTROPHILS ABSOLUTE AUTO 4.14 K/mm3 (1.96-9.15); NEUTROPHILS PERCENT AUTO 69 % (41-73); NRBC ABSOLUTE 0.00 K/mm3 (0.00-0.02); NRBC Auto 0.0 /100 WBC (0.0-0.2); Platelet Count 335 K/mm3 (150-400); RDW Coefficient Variation 16.8 % (11.7-14.2); RDW Standard Deviation 43.2 fL (35.1-46.3)
[2025-01-30 10:05] LABS: Prothrombin Time Results 10.3 Sec (9.7-11.5)
[2025-01-30 10:15] LABS: Alanine Aminotransfer (ALT/SGP 22.0 U/L (12-78); Albumin, Blood 3.1 g/dL (3.4-5.0); Albumin/Globulin Ratio 0.7 (0.8-1.8); Anion Gap 5.0 mmol/L (3-11); Aspartate Aminotrans (AST/SGOT 37.0 U/L (12-37); Bilirubin, Total 0.3 mg/dL (0.1-1.0); Blood Urea Nitrogen 27.0 mg/dL (8-24); CO2, Blood 31.0 mmol/L (21-32); Calcium, Blood 8.8 mg/dL (8.5-10.1); Chloride, Blood 104.0 mmol/L (98-108); Creatinine, Blood 0.9 mg/dL (0.40-1.00); Globulin, Blood 4.5 g/dL (2.2-4.0); Glucose, Blood 101.0 mg/dL (70-99); Potassium, Blood 3.4 mmol/L (3.5-5.5); Sodium, Blood 137.0 mmol/L (136-145); Total Protein, Blood 7.6 g/dL (6.4-8.2)
[2025-01-30 12:15] VITALS: BP 152/85
== END 2025-01-30 13:03 | disposition left against medical advice (07) ==
LOC: ER 08:55
PROVIDERS: Student in an Organized Health Care Education/Training Program
DX: D64.9 Anemia, unspecified (principal); R19.5 Other fecal abnormalities; G47.33 Obstructive sleep apnea (adult) (pediatric); I12.9 Hypertensive chronic kidney disease with stage 1 through stage 4 chronic kidney disease, or unspecified chronic kidney disease; N18.9 Chronic kidney disease, unspecified; F17.210 Nicotine dependence, cigarettes, uncomplicated; Z79.51 Long term (current) use of inhaled steroids; Z79.899 Other long term (current) drug therapy
CPT/HCPCS: 80053; 82272; 85025; 85610; 85730; 86850; 86900; 86901; 93005; 93010; 99284-25

== ENCOUNTER 2025-02-04 00:08 | Day surgery (SDC) | payer OTHER ==
[2025-02-04] MEDS ORDERED: Sod Ferric Gluc Complx/Sucrose 125 MG in NS 100 ML IV SCH (01:00)
[2025-02-04 13:53] VITALS: BP 139/70
[2025-02-04] MEDS ORDERED: LISI5 PO (14:28)
[2025-02-04] MEDS ORDERED: GABA300 PO (14:29)
[2025-02-04] MEDS ORDERED: LIDO700A20 TOP (14:29)
[2025-02-04] MEDS ORDERED: JARDIANCE10 MG PO (14:32)
[2025-02-04] MEDS ORDERED: NARCAN4 M1 (14:34)
[2025-02-04] MEDS ORDERED: Voltaren100 GM TOP (14:35)
[2025-02-04] MEDS ORDERED: BUPRENORPHINE HC2 MG SL (14:36)
== END 2025-02-04 14:58 | disposition home or self-care (01) ==
LOC: ATC 00:08
DX: E61.1 Iron deficiency (principal); I10 Essential (primary) hypertension; M54.31 Sciatica, right side; J44.9 Chronic obstructive pulmonary disease, unspecified; G47.33 Obstructive sleep apnea (adult) (pediatric); I87.2 Venous insufficiency (chronic) (peripheral); F17.210 Nicotine dependence, cigarettes, uncomplicated; R63.6 Underweight; Z68.1 Body mass index [BMI] 19.9 or less, adult; Z79.890 Hormone replacement therapy; Z79.899 Other long term (current) drug therapy; Z88.1 Allergy status to other antibiotic agents; Z88.5 Allergy status to narcotic agent
CPT/HCPCS: 96365; J2916

== ENCOUNTER 2025-02-11 02:54 | Day surgery (SDC) | payer OTHER ==
[~2025-02-11 02:54] MED LIST changes: +BUPRENORPHINE HC2 MG SL; +GABA300 PO; +JARDIANCE10 MG PO; +LIDO700A20 TOP; +LISI5 PO; +NARCAN4 M1; +Sod Ferric Gluc Complx/Sucrose 125 MG in NS 100 ML IV SCH; +Voltaren100 GM TOP
[2025-02-11 14:34] VITALS: BP 133/89
== END 2025-02-11 15:38 | disposition home or self-care (01) ==
LOC: ATC 02:54
DX: E61.1 Iron deficiency (principal); I10 Essential (primary) hypertension; J44.9 Chronic obstructive pulmonary disease, unspecified; G47.33 Obstructive sleep apnea (adult) (pediatric); F17.210 Nicotine dependence, cigarettes, uncomplicated; Z88.8 Allergy status to other drugs, medicaments and biological substances
CPT/HCPCS: 96365; 99211; J2916

== ENCOUNTER 2025-02-17 01:50 | Day surgery (SDC) | payer OTHER ==
[2025-02-17 16:10] VITALS: BP 171/97
== END 2025-02-17 17:16 | disposition home or self-care (01) ==
LOC: ATC 01:50
DX: E61.1 Iron deficiency (principal); L97.911 Non-pressure chronic ulcer of unspecified part of right lower leg limited to breakdown of skin; I10 Essential (primary) hypertension; M54.31 Sciatica, right side; J44.9 Chronic obstructive pulmonary disease, unspecified; G47.33 Obstructive sleep apnea (adult) (pediatric); I87.2 Venous insufficiency (chronic) (peripheral); F17.210 Nicotine dependence, cigarettes, uncomplicated; R63.6 Underweight; Z68.1 Body mass index [BMI] 19.9 or less, adult; Z79.890 Hormone replacement therapy; Z79.899 Other long term (current) drug therapy; Z88.8 Allergy status to other drugs, medicaments and biological substances
CPT/HCPCS: 96365; 99211; J2916

== ENCOUNTER 2025-02-18 02:08 | Day surgery (SDC) | payer OTHER ==
[2025-02-18 14:42] VITALS: BP 142/81
[2025-02-18 16:35] LABS: Ferritin, Serum 52.0 ng/mL (8-252); Total Iron Binding Capacity 519.0 ug/dL (250-450)
== END 2025-02-18 15:50 | disposition home or self-care (01) ==
LOC: ATC 02:08
DX: E61.1 Iron deficiency (principal); I10 Essential (primary) hypertension; J44.9 Chronic obstructive pulmonary disease, unspecified; G47.33 Obstructive sleep apnea (adult) (pediatric); I87.2 Venous insufficiency (chronic) (peripheral); F17.210 Nicotine dependence, cigarettes, uncomplicated; Z88.5 Allergy status to narcotic agent; Z88.8 Allergy status to other drugs, medicaments and biological substances
CPT/HCPCS: 82728; 83540; 83550; 96365; J2916

== ENCOUNTER 2025-02-22 00:46 | Day surgery (SDC) | payer OTHER ==
[~2025-02-22 00:46] MED LIST changes: -Sod Ferric Gluc Complx/Sucrose 125 MG in NS 100 ML IV SCH
[2025-02-22] MEDS ORDERED: Sod Ferric Gluc Complx/Sucrose 125 MG in NS 100 ML IV SCH (01:00)
[2025-02-22 14:45] VITALS: BP 140/78
== END 2025-02-22 15:37 | disposition home or self-care (01) ==
LOC: ATC 00:46
DX: E61.1 Iron deficiency (principal); I10 Essential (primary) hypertension; I87.2 Venous insufficiency (chronic) (peripheral); J44.9 Chronic obstructive pulmonary disease, unspecified; F17.210 Nicotine dependence, cigarettes, uncomplicated; G47.33 Obstructive sleep apnea (adult) (pediatric); M54.31 Sciatica, right side; Z79.51 Long term (current) use of inhaled steroids; Z79.84 Long term (current) use of oral hypoglycemic drugs; Z79.899 Other long term (current) drug therapy
CPT/HCPCS: 96365; J2916

== ENCOUNTER 2025-02-25 00:56 | Day surgery (SDC) | payer OTHER | END 2025-02-25 15:52 | disposition home or self-care (01) | LOC: ATC 00:56 | DX: E61.1 Iron deficiency (principal); I10 Essential (primary) hypertension; M54.31 Sciatica, right side; J44.9 Chronic obstructive pulmonary disease, unspecified; G47.33 Obstructive sleep apnea (adult) (pediatric); I87.2 Venous insufficiency (chronic) (peripheral); F17.210 Nicotine dependence, cigarettes, uncomplicated; R63.6 Underweight; Z68.1 Body mass index [BMI] 19.9 or less, adult; Z79.899 Other long term (current) drug therapy; Z88.8 Allergy status to other drugs, medicaments and biological substances ==